=== PATIENT | female | born 1940 | race Caucasian/White ===

== ENCOUNTER → 2017-02-20 | Outpatient (CLI) | payer MEDICARE ==
[~2017-02-20] MED LIST: ASPIRIN81 M2 PO; AUGMENTIN875 MG PO; CAYENNE PO; CO Q-1010 MG PO; COATED ASPIRIN325 M1 PO; COLACE PO; COQ-1030 MG PO; FLAXSEED OIL1000 M1 PO; LEVOTHYROXINE75 MCG PO; LISINOPRIL PO; SIMVASTATIN20 MG PO; VICODIN PO; VITAMIN A25000 UNIT PO; VITAMIN D35000 UNI1 PO; VITAMIN D35000 UNIT PO; VITAMIN E400 UNI4 PO; ZOCOR20 MG PO
--- NOTE | ~2017-02-20 | CR63 ---
[facility] A Service of [facility] & [facility] RADIOLOGY TEXT RESULTS PATIENT: EB JAEGER LOCATION: [facility] : 38 UNIT #: [id number] AGE: [address]: Serenity Merida MD SEX: F ORDER DR: [id number] [facility] [address] [place], [place] [address] [id number] O MR#: [id number] Acc #: [id number] NAME: EB JAEGER : 1940 SEX: F STUDY DATE/TIME: 02/20/2017 11:46 UNIT: [facility] ROOM: STUDY DESCRIPTION: CR Chest 2 View Attending Physician: Serenity Merida M.D. Referring Physician: Serenity Merida M.D. Ordering Physician: Serenity Merida M.D. Primary Care Physician: Serenity Merida M.D. MEDICAL IMAGING REPORT This report is preliminary unless electronic signature is present EXAM Chest PA and lateral 02/20/2017 COMPARISON 06/22/2014 HISTORY Cough, congestion since December of 2016. PA and lateral views of the chest are obtained. The heart size is within normal limits. Lungs appear clear with no acute process seen. There are scattered calcifications bilaterally. CONCLUSION Evidence of old healed granulomatous disease. No acute process identified. Dictated by... Nick Mcdonald M.D. THIS IS AN ELECTRONICALLY VERIFIED REPORT Nick Mcdonald M.D. at 02/23/2017 7:20 AM ROSA/toi TD: 02/21/2017 00:20 JOB #: [id number] MEDICAL IMAGING REPORT Page 1 of 1 COPY
== END | disposition home or self-care (01) ==
LOC: CRAD 11:23
DX: J42 Unspecified chronic bronchitis (principal)
CPT/HCPCS: 71020